=== PATIENT | female | born 1975 | race Caucasian/White ===

== ENCOUNTER → 2019-10-11 16:11 | Outpatient (CLI) | payer SELFPAY ==
--- NOTE | ~2019-10-11 | XR_ITS ---
XR knee RT 3V DATE: 10/11/2019 16:36 INDICATION: Right knee pain TECHNIQUE: Warden and standing AP and lateral views COMPARISON: None FINDINGS: No fracture or dislocation or joint effusion is evident. No periosteal reaction or bone tobi truction. Joint spaces are preserved. No radiopaque intra-articular loose body or chondrocalcinosis. IMPRESSION: No significant abnormality Reviewed, dictated and finalized at location A. IMPRESSION: No significant abnormality
== END ==
PROVIDERS: Visit Provider Nurse Practitioner Family
DX: M25.561 Pain in right knee (principal)
CPT/HCPCS: 73562

== ENCOUNTER → 2019-11-17 15:36 | Outpatient (CLI) | payer BC, SELFPAY ==
--- NOTE | ~2019-11-17 | MR_ITS ---
EXAMINATION: MR knee RT wo con DATE: 11/17/2019 16:26 INDICATION: Right knee pain TECHNIQUE: Magnetic resonance imaging (MRI) of the right knee was performed without intravenous contr ast. Sequences included coronal PD-weighted FSE, coronal PD-weighted FS FSE, sagittal T2-weighted FS E, sagittal PD-weighted FS FSE and axial PD weighted fat saturated FSE. COMPARISON: None. FINDINGS: Medial compartment: Medial meniscus is normal. Partial-thickness chondral fissure along the lateral margin of the anterio r weightbearing medial femoral condyle. Lateral compartment: Lateral meniscus is normal. Partial-thickness chondral fissuring without degenerative subchondral zoie nges along the posterior rim of the lateral tibial plateau. Patellofemoral compartment: Articular cartilage is normal. Ligaments and tendons: Anterior and posterior cruciate ligaments are normal. The medial collateral ligament and fibular jaron ateral ligament complex are normal. The extensor mechanism is normal. The visualized medial and later al hamstring tendons as well as the iliotibial band are normal. Fluid: Physiologic amount of fluid in the joint space. No loose osteochondral bodies identified. Osseous/other: Patella sofi with mildly increased Insall-Salvati ratio of 1.54 and modified Insall-Salvati ratio of 2.05 (upper limits of normal of 1.5 and 2.0 respectively) disease. Minimal increased signal in the in frapatellar fat pad along the inferolateral margin of the patella which could be seen with fat pad im pingement syndrome. No fracture or pathologic marrow replacing process. IMPRESSION: 1. Normal menisci and stabilizing ligaments of the knee. 2. 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 3. Patella sofi and minimal edema at the infrapatellar fat pad which could be seen with fat pad impin gement syndrome. Reviewed, dictated and finalized at location A. IMPRESSION: 1. Normal menisci and stabilizing ligaments of the knee. 2. Mild osteoarthritis in the medial and lateral compartments with small region s of moderate grade chondromalacia. 3. Patella sofi and minimal edema at the infrapatellar fat pad which could be s een with fat pad impingement syndrome.
== END ==
PROVIDERS: Visit Provider Nurse Practitioner Family
DX: M17.11 Unilateral primary osteoarthritis, right knee (principal)
CPT/HCPCS: 73721